=== PATIENT | male | born 1960 | race American Indian/Alaskan Native ===

== ENCOUNTER 2017-03-19 21:27 | Emergency (ER) | payer SELFPAY ==
[2017-03-19 21:58] VITALS: BP 96/63
[2017-03-19 22:41] LABS: Hematocrit 42.4 % (35.5-45.6); Hemoglobin 14.6 gm/dl (11.8-15.2); Mean Corpuscular HGB Conc 35 % (32-34); Mean Corpuscular Hemoglobin 32 pg (28-32); Mean Corpuscular Volume 92 fl (84-94); Platelet Count 339 K/mm3 (140-440); Red Cell Distribution Width 16.6 % (13.2-15.2)
--- NOTE | 2017-03-19 23:30 | XRay Report ---
FINAL REPORT PROCEDURE: XR ANKLE 3+V LT TECHNIQUE: Left ankle radiographs, AP, lateral, and oblique views. CPT 06099 HISTORY: LEFT ANKLE SWELLING/REDNESS COMPARISON: No prior studies are available for comparison. FINDINGS: Fracture (s) and/or Dislocation(s): None . Alignment: Normal . Joint space(s): Mild narrowing of the joint spaces.. Soft tissues: Mild diffuse soft tissue swelling.. Bone mineralization: Normal . Foreign bodies: None . Calcaneal spurring: None . IMPRESSION: No evidence of an acute fracture. Mild arthritis. Mild diffuse soft tissue swelling..
[2017-03-19 23:41] LABS: Erythrocyte Sedimentation Rate 1 mm/Hr (0-20)
[2017-03-19 23:42] LABS: Calcium 8.9 mg/dL (8.4-10.2)
[2017-03-20 01:27] LABS: Uric Acid 8.4 mg/dL (3.5-7.6)
== END 2017-03-20 08:40 | disposition left against medical advice (07) ==
LOC: ED 21:27
DX: M25.572 Pain in left ankle and joints of left foot (principal); Z53.21 Procedure and treatment not carried out due to patient leaving prior to being seen by health care provider
CPT/HCPCS: 36415; 80048; 83880; 84550; 85027; 85652